=== PATIENT | female | born 1990 | race African-American/Black ===

== ENCOUNTER 2017-07-12 06:57 | Day surgery (SDC) | payer BC ==
[~2017-07-12] VITALS: Ht 167.6 cm; Wt 145.1 kg
[2017-07-12] MEDS ORDERED: MIVACURIUM CHLORIDE 20 MG/10 ML VIAL (MIVACRON) INJ ONE (08:45)
[2017-07-12] MEDS ORDERED: PROPOFOL 200MG/ 20ML VIAL (DIPRIVAN) IV ONE (08:45)
[2017-07-12] MEDS ORDERED: fentaNYL CITRATE 250 MCG/5 ML AMP IV ONE (08:45)
[2017-07-12] MEDS ORDERED: ONDANSETRON HCL 4 MG/2 ML VIAL IVP ONE (08:45)
[2017-07-12] MEDS ORDERED: SEVOFLURANE 15 MIN GAS INH ONE (08:45)
[2017-07-12] MEDS ORDERED: MIDAZOLAM HCL 5 MG/5 ML VIAL IVP ONE (08:45)
[2017-07-12] MEDS ORDERED: NS IRRIG SOLN 5000 ML IR ONE (08:45)
[2017-07-12] MEDS ORDERED: SUCCINYLCHOLINE CHLORIDE 20 MG/ML(QUELICIN) IVP ONE (08:45)
[2017-07-12] MEDS ORDERED: KETOROLAC TROMETHAMINE 30 MG VIAL IVP ONE (08:45)
[2017-07-12] MEDS ORDERED: LR 1,000 ML IV SCH (09:19)
[2017-07-12] MEDS ORDERED: MORPHINE 4 MG/ML INJ. SYRINGE IVP PRN ×3 (09:30)
[2017-07-12] MEDS ORDERED: METOCLOPRAMIDE HCL 10 MG/2 ML VIAL IVP PRN (09:30)
[2017-07-12 09:40] VITALS: BP_SYST 118
[2017-07-12] MEDS ORDERED: PROMETHAZINE HCL 25 MG/ML AMP IM PRN ×2 (09:45)
[2017-07-12] MEDS ORDERED: OXYCODONE/ACETAMINOPHEN 5-325 TABLET PO PRN ×2 (09:45)
[2017-07-12] MEDS ORDERED: IBUPROFEN 600 MG TABLET PO PRN (09:45)
[2017-07-12] MEDS ORDERED: MORPHINE 4 MG/ML INJ. SYRINGE ONE (10:05)
[2017-07-12] MEDS ORDERED: ONDANSETRON HCL 4 MG/2 ML VIAL IVP PRN (12:30)
== END 2017-07-12 12:10 | disposition home or self-care (01) ==
LOC: SDS 06:57 → SMU 06:58 → SDS 12:10
PROVIDERS: ATTEND Obstetrics & Gynecology
DX: N84.0 Polyp of corpus uteri (principal); D50.9 Iron deficiency anemia, unspecified; Z68.43 Body mass index [BMI] 50.0-59.9, adult; Z79.899 Other long term (current) drug therapy; E66.01 Morbid (severe) obesity due to excess calories
CPT/HCPCS: 36415; 58558; 86886; 86900; 86901; 88305; C1819; J0330; J1885; J2250; J2270; J2405; J2704; J3010; J7120